=== PATIENT | male | born 1975 | race Caucasian/White ===

== ENCOUNTER 2017-07-10 07:25 | Day surgery (SDC) | payer BC ==
[~2017-07-10] VITALS: Ht 188 cm; Wt 116.4 kg
[~2017-07-10 07:25] MED LIST: LEVA15HF4 INH
[2017-07-10] MEDS ORDERED: LACTATED RINGERS 1,000 ML IV SCH (07:47)
[2017-07-10 07:48] VITALS: BP 141/96
[2017-07-10] MEDS ORDERED: FENTANYL PF 250 MCG/5ML ONE (07:51)
[2017-07-10] MEDS ORDERED: MIDAZOLAM 1 MG/ML, 2ML ONE (07:51)
[2017-07-10] MEDS ORDERED: ALBUTEROL SULFATE 2.5 MG/3 ML NPPB PRN (08:00)
[2017-07-10] MEDS ORDERED: FENTANYL PF 100 MCG/2ML IV PRN (08:00)
[2017-07-10] MEDS ORDERED: PROMETHAZINE 12.5 MG SUPP PR PRN (08:00)
[2017-07-10] MEDS ORDERED: PROMETHAZINE 25 MG SUPP PR PRN (08:00)
[2017-07-10] MEDS ORDERED: LORazepam 2 MG/ML, 1ML IVPush PRN (08:00)
[2017-07-10] MEDS ORDERED: ONDANSETRON ODT 8 MG PO ONE (08:00)
[2017-07-10] MEDS ORDERED: hydrALAzine 20 MG/ML, 1ML IV PRN (08:00)
[2017-07-10] MEDS ORDERED: MEPERIDINE/PF 25MG/0.5ML IVPush PRN (08:00)
[2017-07-10] MEDS ORDERED: HYDROmorphone 1 MG/ML, 1ML IV PRN (08:00)
[2017-07-10] MEDS ORDERED: GABAPENTIN 300 MG CAPSULE PO ONE (08:00)
[2017-07-10] MEDS ORDERED: MORPHINE SULFATE 4 MG/ML, 1ML IVPush PRN (08:00)
[2017-07-10] MEDS ORDERED: LABETALOL 5MG/ML, 20ML IV PRN (08:00)
[2017-07-10] MEDS ORDERED: OXYcodone 5 MG/5 ML ORAL.SOL UDC PO PRN (08:00)
[2017-07-10] MEDS ORDERED: OxyconTIN ER 20 MG TAB.ER PO ONE (08:00)
[2017-07-10] MEDS ORDERED: PROMETHAZINE 25 MG/ML, 1ML IV PRN (08:00)
[2017-07-10] MEDS ORDERED: PROMETHAZINE 25 MG/ML, 1ML IM PRN ×2 (08:00)
[2017-07-10] MEDS ORDERED: ACETAMINOPHEN 500 MG TABLET PO ONE (08:00)
[2017-07-10] MEDS ORDERED: EPINEPHRINE 1 MG/ML, 1ML ONE (08:58)
[2017-07-10] MEDS ORDERED: ROPIvacaine/PF 0.5%, 30 ML ONE (08:58)
[2017-07-10] MEDS ORDERED: LIDOCAINE/PF 1%, 30ML ONE (08:58)
[2017-07-10] MEDS ORDERED: DEXAMETHASONE 4 MG/ML, 1ML ONE (09:18)
[2017-07-10] MEDS ORDERED: CEFAZOLIN 1,000 MG ONE (09:18)
[2017-07-10] MEDS ORDERED: PROPOFOL 10 MG/ML, 20ML ONE (09:18)
[2017-07-10] MEDS ORDERED: MEPERIDINE/PF 25MG/0.5ML ONE (11:02)
[2017-07-10] MEDS ORDERED: KETOROLAC 30 MG/1 ML ONE (11:02)
[2017-07-10] MEDS ORDERED: KETOROLAC 30 MG/1 ML IVPush ONE (11:30)
[2017-07-10] MEDS ORDERED: OXYcodone/APAP 5/325MG TABLET ONE (12:19)
[2017-07-10] MEDS: OXYcodone/APAP 5/325MG TABLET PO PRN ×2 (12:24→12:28)
== END 2017-07-10 14:30 ==
LOC: OUT 07:25
PROVIDERS: ATTEND Orthopaedic Surgery
DX: S83.512A Sprain of anterior cruciate ligament of left knee, initial encounter (principal); M65.862 Other synovitis and tenosynovitis, left lower leg; M79.4 Hypertrophy of (infrapatellar) fat pad; X58.XXXA Exposure to other specified factors, initial encounter; Y93.23 Activity, snow (alpine) (downhill) skiing, snowboarding, sledding, tobogganing and snow tubing; Y92.89 Other specified places as the place of occurrence of the external cause; Y99.8 Other external cause status
CPT/HCPCS: 29875; 29888; 73564; 76000; C1713; J0171; J0690; J1100; J1885; J2175; J2250; J2704; J3010; J3490; J7120; Q0162; J2795